=== PATIENT | female | born 2000 | race African-American/Black ===

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

== ENCOUNTER 2023-02-08 16:24 | Emergency (ER) | payer OTHER ==
[~2023-02-08] VITALS: Ht 160 cm; Wt 70.0 kg
[2023-02-08 17:01] VITALS: BP 130/74; PULSE 78; RESP 16; TEMP 98.9; O2SAT 99
== END 2023-02-08 20:18 | disposition left against medical advice (07) ==
LOC: ER 16:24
DX: M54.9 Dorsalgia, unspecified (principal); Z53.21 Procedure and treatment not carried out due to patient leaving prior to being seen by health care provider
CPT/HCPCS: 99281

== ENCOUNTER 2023-02-12 01:19 | Emergency (ER) | payer OTHER ==
[~2023-02-12] VITALS: Ht 165.1 cm; Wt 68.0 kg
[2023-02-12 01:24] VITALS: BP 129/78; O2SAT 100
[2023-02-12 04:04] VITALS: PULSE 70; RESP 20; TEMP 98.2
== END 2023-02-12 04:06 | disposition home or self-care (01) ==
LOC: ER 01:19
DX: R05.9 Cough, unspecified (principal); M79.89 Other specified soft tissue disorders
CPT/HCPCS: 71045; 81025; 93005; 99283